=== PATIENT | male | born 1945 | race Caucasian/White ===

== ENCOUNTER → 2016-12-17 | Outpatient (CLI) | payer OTHER ==
[~2016-12-17] MED LIST: AMLO10TA2 PO; ASPI-496 PO; BISA10SU2 PR; CEFD300C37 PO; GABA300C10 PO; GLIM1TAB2 PO; LISI2.5T PO; MECL25TA4 PO; METF500T4 PO; OMEP20TA62 PO; POLY17PO5 PO; SENN1TAB7 PO; SIMV5TAB5 PO; TRAZ100T15 PO
== END | disposition home or self-care (01) ==
LOC: PETCFH 07:18
PROVIDERS: ATTEND Urology
DX: C61 Malignant neoplasm of prostate (principal); C79.9 Secondary malignant neoplasm of unspecified site
CPT/HCPCS: 78306; A9503

== ENCOUNTER → 2016-12-17 | Outpatient (CLI) | payer OTHER ==
[~2016-12-17] MED LIST changes: +OMNIPAQUE 350 MG/ML, 100ML BOTTLE ONE
== END | disposition home or self-care (01) ==
LOC: CFH 07:26
PROVIDERS: ATTEND Urology
DX: C61 Malignant neoplasm of prostate (principal); C79.51 Secondary malignant neoplasm of bone; C79.89 Secondary malignant neoplasm of other specified sites; Z96.641 Presence of right artificial hip joint
CPT/HCPCS: 72193; 82565; Q9967

== ENCOUNTER 2017-04-20 14:31 | Inpatient (IN) | payer OTHER ==
[~2017-04-20] VITALS: Ht 167.6 cm; Wt 72.7 kg
[~2017-04-20 14:31] MED LIST changes: +AMOX1TAB64 PO; -OMNIPAQUE 350 MG/ML, 100ML BOTTLE ONE
[2017-04-20] MEDS ORDERED: SODIUM CHLORIDE 0.9% 1,000ML IVBOLUS ONE (15:00)
[2017-04-20] MEDS ORDERED: SODIUM CHLORIDE FLUSH 10ML SYR IVF ONE (15:00)
[2017-04-20 15:35] LABS: HEMOGLOBIN 7.3 g/dL (13.7-18.0); WHITE BLOOD COUNT 8.1 x10^3/uL (3.4-10)
[2017-04-20 15:42] LABS: ASPARTATE AMINO TRANSFERASE 248 U/L (15-37); BLOOD UREA NITROGEN 54 mg/dL (7-18)
[2017-04-20 15:49] LABS: IS PT STATUS REG ER OR PRE ER? YES
[2017-04-20 16:38] LABS: DIFF TOTAL CELLS COUNTED 100 CELL DIFF; VERIFY COUNTS? YES
[2017-04-20 16:39] LABS: POLYCHROMASIA 1+
[2017-04-20 16:40] LABS: ANISOCYTOSIS 1+; OVALOCYTES 1+
[2017-04-20 16:41] LABS: SMALL PLATELETS 1+
[2017-04-20 16:42] LABS: MICROCYTOSIS 1+
[2017-04-20] MEDS ORDERED: SODIUM BICARBONATE 8.4% 150 MEQ in DEXTROSE 5% 1,000 ML IV ONE (16:46)
[2017-04-20] MEDS ORDERED: ONDANSETRON 2MG/ML, 2ML IVPush ONE (17:00)
[2017-04-20] MEDS ORDERED: HYDROmorphone 1 MG/ML, 1ML IVPush PRN (17:00)
[2017-04-20] MEDS ORDERED: LISI-170 PO (17:29)
[2017-04-20] MEDS ORDERED: TRAZ50TA18 PO (17:29)
[2017-04-20] MEDS ORDERED: ACET1TAB64 PO (17:29)
[2017-04-20] MEDS ORDERED: TAMS0.4C2 PO (17:29)
[2017-04-20] MEDS ORDERED: SIMV40TA3 PO (17:29)
[2017-04-20] MEDS ORDERED: AMLO5TAB2 PO (17:29)
[2017-04-20] MEDS ORDERED: HEPARIN 5,000 UNITS/ML, 1ML SQ SCH (18:00)
[2017-04-20] MEDS ORDERED: ENALAPRILAT 1.25 MG/ML, 2ML IVPush PRN (18:00)
[2017-04-20 18:12] VITALS: BP 91/57
[2017-04-20] MEDS ORDERED: hydrALAzine 20 MG/ML, 1ML IV PRN (18:30)
[2017-04-20] MEDS ORDERED: SODIUM BICARBONATE 8.4% 100 MEQ in DEXTROSE 5% 1,000 ML IV SCH (18:30)
[2017-04-20] MEDS: OXYcodone/APAP 5/325MG TABLET PO PRN (18:31)
[2017-04-20] MEDS ORDERED: DEXTROSE 50%, 50ML SYRINGE IVPush PRN (19:00)
[2017-04-20] MEDS ORDERED: DEXTROSE 4 GM TAB.CHEW PO PRN (19:00)
[2017-04-20] MEDS ORDERED: GLUCAGON 1 MG IM PRN (19:00)
[2017-04-20] MEDS ORDERED: HYDROmorphone 1 MG/ML, 1ML IV PRN (20:00)
[2017-04-20] MEDS ORDERED: AMLODIPINE 5 MG TABLET PO SCH (21:00)
[2017-04-20] MEDS: SODIUM CHLORIDE FLUSH 10ML SYR IVF SCH (21:00)
[2017-04-20 21:25] LABS: HEMATOCRIT 19.8 % (39.2-51.8); HEMOGLOBIN 6.5 g/dL (13.7-18.0)
[2017-04-20] MEDS: TAMSULOSIN 0.4 MG CAP.ER.24H PO SCH (21:36)
[2017-04-20] MEDS: TRAZODONE 50MG TABLET PO SCH (21:37)
[2017-04-20] MEDS: INSULIN ASPART 100 UNITS/ML, PEN SQ-INSULIN SCH (22:33)
[2017-04-21] VITALS (7 sets, daily range): BP systolic 91–121; BP diastolic 57–66
[2017-04-21] MEDS: OXYcodone/APAP 5/325MG TABLET PO PRN ×4 (00:36→21:28)
[2017-04-21] MEDS: SODIUM BICARBONATE 8.4% 150 MEQ in DEXTROSE 5% 1,000 ML IV SCH ×2 (03:21→11:43)
[2017-04-21 04:28] LABS: ASPARTATE AMINO TRANSFERASE 162 U/L (15-37); BLOOD UREA NITROGEN 54 mg/dL (7-18)
[2017-04-21 04:47] LABS: HEMATOCRIT 24.1 % (39.2-51.8); HEMOGLOBIN 8.1 g/dL (13.7-18.0); WHITE BLOOD COUNT 6.8 x10^3/uL (3.4-10)
[2017-04-21 05:33] LABS: ANISOCYTOSIS 1+; MICROCYTOSIS 1+; OVALOCYTES 1+; POLYCHROMASIA 1+
[2017-04-21 05:34] LABS: SMALL PLATELETS 1+
[2017-04-21] MEDS: INSULIN ASPART 100 UNITS/ML, PEN SQ-INSULIN SCH ×4 (07:00→21:00)
[2017-04-21] MEDS: FERROUS SULFATE 325 MG TABLET PO SCH ×3 (09:35→18:11)
[2017-04-21] MEDS: SODIUM CHLORIDE FLUSH 10ML SYR IVF SCH ×2 (09:36→21:31)
[2017-04-21] MEDS: SENNA/DOCUSATE TABLET PO SCH (09:36)
[2017-04-21 13:36] LABS: OCCBLD OBC PASS
[2017-04-21] MEDS ORDERED: FENTANYL REMOVE PATCH NOTE XX SCH (17:00)
[2017-04-21] MEDS ORDERED: FENTANYL 12 MCG PATCH TD SCH ×2 (17:00→17:30)
[2017-04-21] MEDS ORDERED: SODIUM BICARBONATE 8.4% 150 MEQ in DEXTROSE 5% 1,000 ML IV SCH (18:30)
[2017-04-21] MEDS: TRAZODONE 50MG TABLET PO SCH (21:00)
[2017-04-21] MEDS: TAMSULOSIN 0.4 MG CAP.ER.24H PO SCH (21:27)
[2017-04-22 00:24] VITALS: BP 116/54
[2017-04-22] MEDS ORDERED: SODIUM BICARBONATE 8.4% 150 MEQ in DEXTROSE 5% 1,000 ML IV SCH (03:00)
[2017-04-22 04:27] LABS: BLOOD UREA NITROGEN 59 mg/dL (7-18)
[2017-04-22 04:37] LABS: HEMOGLOBIN 7.3 g/dL (13.7-18.0); WHITE BLOOD COUNT 7.8 x10^3/uL (3.4-10)
[2017-04-22 04:44] LABS: ASPARTATE AMINO TRANSFERASE 69 U/L (15-37)
[2017-04-22 04:46] LABS: HEMATOCRIT 21.9 % (39.2-51.8)
[2017-04-22] MEDS: OXYcodone/APAP 5/325MG TABLET PO PRN (05:21)
[2017-04-22] MEDS: INSULIN ASPART 100 UNITS/ML, PEN SQ-INSULIN SCH (07:00)
[2017-04-22] MEDS: FERROUS SULFATE 325 MG TABLET PO SCH (07:28)
[2017-04-22] MEDS: SODIUM CHLORIDE FLUSH 10ML SYR IVF SCH ×3 (07:28→20:12)
[2017-04-22] MEDS: SENNA/DOCUSATE TABLET PO SCH (07:28)
[2017-04-22] MEDS ORDERED: NALOXONE 1 MG/ML, 2ML ONE (07:40)
[2017-04-22 07:44] VITALS: BP 62/38
[2017-04-22 07:52] VITALS: BP 92/52
[2017-04-22] MEDS ORDERED: NALOXONE 0.4 MG/ML, 1ML IVPush ONE (08:00)
[2017-04-22 08:14] VITALS: BP 68/48
[2017-04-22] MEDS ORDERED: morphine SULFATE ORAL.CONC 20 MG/ML SL PRN (08:30)
[2017-04-22] MEDS ORDERED: SCOPOLAMINE PATCH, 1.5MG PATCH.TD72 TD PRN (08:30)
[2017-04-22] MEDS ORDERED: morphine SULFATE 10 MG/ML, 1ML ONE ×3 (11:19→21:04)
[2017-04-22] MEDS: MORPHINE SULFATE 4 MG/ML, 1ML IVPush PRN ×3 (11:21→21:16)
[2017-04-22 12:55] VITALS: BP_SYST 61; BP_SYST 66; BP_DIAS 35; BP_DIAS 40
[2017-04-22] MEDS: TRAZODONE 50MG TABLET PO SCH (20:12)
[2017-04-23] MEDS: SODIUM CHLORIDE FLUSH 10ML SYR IVF SCH ×2 (02:37→20:29)
[2017-04-23] MEDS ORDERED: morphine SULFATE 10 MG/ML, 1ML ONE (02:53)
[2017-04-23] MEDS: MORPHINE SULFATE 4 MG/ML, 1ML IVPush PRN (02:58)
[2017-04-23] MEDS: morphine SULFATE ORAL.CONC 20 MG/ML BC PRN ×2 (04:45→08:13)
[2017-04-23] MEDS ORDERED: morphine SULFATE 125 MG in SODIUM CHLORIDE 0.9% 237.5 ML IV PRN (09:00)
[2017-04-23] MEDS ORDERED: morphine SULFATE 10 MG/ML, 1ML IVPush PRN (09:00)
[2017-04-23] MEDS: ALLOPURINOL 100 MG TABLET PO SCH (09:00)
[2017-04-23] MEDS ORDERED: SODIUM CHLORIDE 0.9% 1,000 ML IV SCH (12:00)
[2017-04-23] MEDS: TRAZODONE 50MG TABLET PO SCH (20:28)
[2017-04-24] MEDS: LORazepam INTENSOL 2 MG/ML SL PRN (02:45)
[2017-04-24] MEDS: ALLOPURINOL 100 MG TABLET PO SCH (09:00)
[2017-04-24] MEDS: SODIUM CHLORIDE FLUSH 10ML SYR IVF SCH ×2 (09:00→21:10)
[2017-04-24] MEDS: FENTANYL REMOVE PATCH NOTE XX SCH (17:29)
[2017-04-24] MEDS: FENTANYL 12 MCG PATCH TD SCH (17:30)
[2017-04-24] MEDS: TRAZODONE 50MG TABLET PO SCH (21:00)
[2017-04-25] MEDS: SODIUM CHLORIDE FLUSH 10ML SYR IVF SCH ×2 (09:00→22:07)
[2017-04-25] MEDS: ALLOPURINOL 100 MG TABLET PO SCH (09:00)
[2017-04-25] MEDS: TRAZODONE 50MG TABLET PO SCH (21:00)
[2017-04-26] MEDS ORDERED: DEXAMETHASONE 4 MG/ML, 1ML IVPush SCH (12:30)
[2017-04-26] MEDS: DEXAMETHASONE 4 MG/ML, 1ML IVPush SCH (13:32)
[2017-04-26] MEDS: SODIUM CHLORIDE FLUSH 10ML SYR IVF SCH ×2 (13:32→19:54)
[2017-04-26] MEDS ORDERED: LORazepam 1MG TABLET ONE (13:57)
[2017-04-26] MEDS: LORazepam INTENSOL 2 MG/ML SL PRN (14:01)
[2017-04-26] MEDS: TRAZODONE 50MG TABLET PO SCH (19:53)
[2017-04-27] MEDS: SODIUM CHLORIDE FLUSH 10ML SYR IVF SCH ×2 (09:00→20:57)
[2017-04-27] MEDS: DEXAMETHASONE 4 MG/ML, 1ML IVPush SCH (09:00)
[2017-04-27] MEDS: FENTANYL REMOVE PATCH NOTE XX SCH (17:29)
[2017-04-27] MEDS: LORazepam INTENSOL 2 MG/ML SL PRN (17:48)
[2017-04-27] MEDS: ATROPINE OPHTH SOLN 1%, 2ML PO PRN ×2 (18:22→20:58)
[2017-04-27] MEDS: FENTANYL 12 MCG PATCH TD SCH (18:30)
[2017-04-27] MEDS: TRAZODONE 50MG TABLET PO SCH (20:57)
[2017-04-28] MEDS: FENTANYL REMOVE PATCH NOTE XX SCH (02:54)
== END 2017-04-28 02:43 | disposition expired | DRG 722 ==
LOC: ED 14:45 → EDIP 16:38 → 3NW 18:15
PROVIDERS: ADMIT Internal Medicine; ATTEND Family Medicine
PROC: 0T9B70Z Drainage of Bladder with Drainage Device, Via Natural or Artificial Opening (ICD-10-PCS; principal; 2017-04-20)
PROC: 30233N1 Transfusion of Nonautologous Red Blood Cells into Peripheral Vein, Percutaneous Approach (ICD-10-PCS; 2017-04-21)
DX: C61 Malignant neoplasm of prostate (principal); J15.9 Unspecified bacterial pneumonia; N17.9 Acute kidney failure, unspecified; C79.51 Secondary malignant neoplasm of bone; D69.6 Thrombocytopenia, unspecified; E11.22 Type 2 diabetes mellitus with diabetic chronic kidney disease; E87.2 Acidosis; E83.51 Hypocalcemia; I69.351 Hemiplegia and hemiparesis following cerebral infarction affecting right dominant side; M84.422A Pathological fracture, left humerus, initial encounter for fracture; D63.8 Anemia in other chronic diseases classified elsewhere; D50.9 Iron deficiency anemia, unspecified; I12.9 Hypertensive chronic kidney disease with stage 1 through stage 4 chronic kidney disease, or unspecified chronic kidney disease; E78.00 Pure hypercholesterolemia, unspecified; E86.0 Dehydration; H40.9 Unspecified glaucoma; K21.9 Gastro-esophageal reflux disease without esophagitis; M06.9 Rheumatoid arthritis, unspecified; N18.9 Chronic kidney disease, unspecified; N40.0 Benign prostatic hyperplasia without lower urinary tract symptoms; Z51.5 Encounter for palliative care; Z66 Do not resuscitate; Z85.46 Personal history of malignant neoplasm of prostate; Z87.01 Personal history of pneumonia (recurrent); Z87.891 Personal history of nicotine dependence; Z96.641 Presence of right artificial hip joint; W18.30XA Fall on same level, unspecified, initial encounter; Y93.89 Activity, other specified; Y92.89 Other specified places as the place of occurrence of the external cause; Y99.8 Other external cause status; I95.9 Hypotension, unspecified
CPT/HCPCS: 36415; 36430; 71010; 76770; 80053; 81001; 82272; 82550; 82962; 83036; 83605; 83735; 84100; 84484; 84550; 85014; 85018; 85025; 85610; 85730; 86480; 86850; 86900; 86923; 87040; 93005; 96361; 96365; J1100; J1644; J1815; J2270; J2310; J7070; J7030; P9040